=== PATIENT | male | born 1955 | race Caucasian/White ===

== ENCOUNTER 2022-03-09 21:41 | Inpatient (IN) ==
[2022-03-09] MEDS ORDERED: Enoxaparin 40 MG/0.4 ML SYR SUBCUT SCH (23:45)
[2022-03-10 00:30] LABS: INR 2.5 (0.86-1.15)
[2022-03-10] MEDS ORDERED: Remdesivir 100 mg Vial 200 MG in NS 0.9% 250 ml 210 ML IV ONE (00:30)
[2022-03-10] MEDS ORDERED: Iohexol 350 (CONTRAST) 500 ML MDV IV ONE (00:57)
[2022-03-10 04:47] LABS: Hematocrit 37 % (42-52); Hemoglobin 12.1 g/dL (14.0-18.0); Mean Corpuscular HGB Conc 33 g/dL (31-36); Mean Corpuscular Hemoglobin 31 pg (27-31); Mean Corpuscular Volume 93 fL (80-94); Platelet Count 146 10^3/uL (150-450); Red Blood Count 3.95 10^6 /uL (4.18-5.48); Red Cell Distribution Width 14 % (10-15); White Blood Count 23.6 10^3/uL (3.5-10.8)
[2022-03-10 05:04] LABS: INR 2.42 (0.86-1.15)
[2022-03-10 05:11] LABS: Albumin 3.6 g/dL (3.2-5.2); Albumin/Globulin Ratio 1.2 (1-3); Calcium 8.4 mg/dL (8.6-10.3); Globulin 2.9 g/dL (2-4); Potassium 4.8 mmol/L (3.5-5.0); Total Bilirubin 0.9 mg/dL (0.2-1.0); Total Protein 6.5 g/dL (6.4-8.9); eGFR CKD-EPI 74.2 (>60)
[2022-03-10 07:49] LABS: Magnesium 1.5 mg/dL (1.9-2.7)
[2022-03-10] MEDS: Mometasone/Formoter 200/5 MDI INH SCH ×2 (07:52→20:27)
[2022-03-10] MEDS: Albuterol HFA INHALER 8 gm MDI INH PRN ×2 (07:52→20:32)
[2022-03-10] MEDS: SPIRIVA Respimat (tiotropium) 2.5 mcg/inh Inhaler INH SCH (07:53)
[2022-03-10] MEDS ORDERED: Magnesium Sulfate IV 3 GM in NS 0.9% 100 ml BAG 100 ML IVPB ONE (08:03)
[2022-03-10] MEDS ORDERED: Magnesium Sulfate 2 GM IV (Premix) IVPB ONE (08:15)
[2022-03-10 08:56] LABS: ABS Basophils 0.1 10^3/ul (0-0.2); ABS Lymphocytes 1.2 10^3/ul (1.0-4.8); ABS Monocytes 0.3 10^3/ul (0-0.8); Lymphocyte % 4.9 %; Nucleated Red Blood Cells % 0.1
[2022-03-10] MEDS ORDERED: Albuterol/Ipratropium RESP(NF) MDI (Combivent Respimat) INH SCH (09:00)
[2022-03-10] MEDS ORDERED: Magnesium Sulfate 1 GM IV 1 GM/100 ML BAG IV ONE (09:15)
[2022-03-10 09:50] LABS: RBC Morphology Normal (Normal)
[2022-03-10] MEDS ORDERED: Metoprolol Tartrate 5 mg VIAL 5 ml VIAL (1 mg/ml) IV ONE (14:46)
[2022-03-10] MEDS: cefTRIAXone 1 gm/50 mL D5W 1 GM/50 ML BAG IV SCH (20:20)
[2022-03-10] MEDS: Remdesivir 100 mg Vial 100 MG in NS 0.9% 250 ml 230 ML IV SCH (22:19)
[2022-03-11 05:44] LABS: ABS Lymphocytes 1.2 10^3/ul (1.0-4.8); ABS Monocytes 0.7 10^3/ul (0-0.8); ABS Neutrophils 16.4 10^3/ul (1.5-7.7); Hematocrit 36 % (42-52); Hemoglobin 11.8 g/dL (14.0-18.0); Lymphocyte % 6.6 %; Mean Corpuscular HGB Conc 33 g/dL (31-36); Mean Corpuscular Hemoglobin 31 pg (27-31); Mean Corpuscular Volume 94 fL (80-94); Mean Platelet Volume 8.5 fL (7.4-10.4); Platelet Count 152 10^3/uL (150-450); Red Blood Count 3.81 10^6 /uL (4.18-5.48); Red Cell Distribution Width 14 % (10-15); White Blood Count 18.4 10^3/uL (3.5-10.8)
[2022-03-11 05:53] LABS: INR 1.76 (0.86-1.15)
[2022-03-11 06:13] LABS: Albumin 3.4 g/dL (3.2-5.2); Albumin/Globulin Ratio 1.1 (1-3); Calcium 8.8 mg/dL (8.6-10.3); Magnesium 2.4 mg/dL (1.9-2.7); Total Bilirubin 0.4 mg/dL (0.2-1.0); Total Protein 6.4 g/dL (6.4-8.9); eGFR CKD-EPI 99.6 (>60)
[2022-03-11 06:56] LABS: Potassium 5.3 mmol/L (3.5-5.0)
[2022-03-11] MEDS: Mometasone/Formoter 200/5 MDI INH SCH ×2 (07:50→19:06)
[2022-03-11] MEDS: SPIRIVA Respimat (tiotropium) 2.5 mcg/inh Inhaler INH SCH (07:50)
[2022-03-11] MEDS: Albuterol HFA INHALER 8 gm MDI INH PRN (07:50)
[2022-03-11] MEDS: methylPREDNISolone SOD SUCC 40 mg/ml 1 ml VIAL IV SCH (08:29)
[2022-03-11] MEDS: cefTRIAXone 1 gm/50 mL D5W 1 GM/50 ML BAG IV SCH (21:02)
[2022-03-11] MEDS: Remdesivir 100 mg Vial 100 MG in NS 0.9% 250 ml 230 ML IV SCH (21:02)
[2022-03-12 06:52] LABS: INR 1.6 (0.86-1.15)
[2022-03-12 06:55] LABS: ABS Lymphocytes 1.4 10^3/ul (1.0-4.8); ABS Monocytes 0.6 10^3/ul (0-0.8); ABS Neutrophils 14.1 10^3/ul (1.5-7.7); Hematocrit 36 % (42-52); Hemoglobin 11.8 g/dL (14.0-18.0); Lymphocyte % 8.7 %; Mean Corpuscular HGB Conc 33 g/dL (31-36); Mean Corpuscular Hemoglobin 31 pg (27-31); Mean Corpuscular Volume 94 fL (80-94); Mean Platelet Volume 8.5 fL (7.4-10.4); Platelet Count 157 10^3/uL (150-450); Red Blood Count 3.77 10^6 /uL (4.18-5.48); Red Cell Distribution Width 14 % (10-15); White Blood Count 16.2 10^3/uL (3.5-10.8)
[2022-03-12 07:09] LABS: ALT 40 U/L (7-52); Albumin 3.3 g/dL (3.2-5.2); Albumin/Globulin Ratio 1.1 (1-3); Alkaline Phosphatase 81 U/L (35-149); Blood Urea Nitrogen 26 mg/dL (6-24); CO2 Carbon Dioxide 37 mmol/L (22-32); Calcium 8.8 mg/dL (8.6-10.3); Chloride 101 mmol/L (101-111); Globulin 3.1 g/dL (2-4); Glucose 139 mg/dL (70-100); Magnesium 2.2 mg/dL (1.9-2.7); Sodium 140 mmol/L (135-145); Total Protein 6.4 g/dL (6.4-8.9); eGFR CKD-EPI 99.2 (>60)
[2022-03-12 07:18] LABS: Anion Gap 2 mmol/L (2-11)
[2022-03-12] MEDS: SPIRIVA Respimat (tiotropium) 2.5 mcg/inh Inhaler INH SCH (08:06)
[2022-03-12] MEDS: Mometasone/Formoter 200/5 MDI INH SCH ×2 (08:06→20:50)
[2022-03-12] MEDS: Albuterol HFA INHALER 8 gm MDI INH PRN ×2 (08:07→20:53)
[2022-03-12] MEDS: methylPREDNISolone SOD SUCC 40 mg/ml 1 ml VIAL IV SCH (09:03)
[2022-03-12 09:18] LABS: Potassium Redraw 5.1 mmol/L (3.5-5.0)
[2022-03-12] MEDS: cefTRIAXone 1 gm/50 mL D5W 1 GM/50 ML BAG IV SCH (21:41)
[2022-03-12] MEDS: Remdesivir 100 mg Vial 100 MG in NS 0.9% 250 ml 230 ML IV SCH (22:16)
[2022-03-13 07:07] LABS: ABS Lymphocytes 1.7 10^3/ul (1.0-4.8); ABS Monocytes 0.5 10^3/ul (0-0.8); ABS Neutrophils 8.7 10^3/ul (1.5-7.7); Eosinophil % 0.1 %; Hematocrit 37 % (42-52); Hemoglobin 12.3 g/dL (14.0-18.0); Lymphocyte % 15.3 %; Mean Corpuscular HGB Conc 34 g/dL (31-36); Mean Corpuscular Hemoglobin 32 pg (27-31); Mean Corpuscular Volume 95 fL (80-94); Mean Platelet Volume 8.3 fL (7.4-10.4); Platelet Count 160 10^3/uL (150-450); Red Blood Count 3.87 10^6 /uL (4.18-5.48); Red Cell Distribution Width 13 % (10-15); White Blood Count 10.9 10^3/uL (3.5-10.8)
[2022-03-13 07:09] LABS: INR 1.67 (0.86-1.15)
[2022-03-13 07:19] LABS: Albumin 3.2 g/dL (3.2-5.2); Calcium 9.1 mg/dL (8.6-10.3); Globulin 3.1 g/dL (2-4); Potassium 4.9 mmol/L (3.5-5.0); Total Bilirubin 0.4 mg/dL (0.2-1.0); Total Protein 6.3 g/dL (6.4-8.9); eGFR CKD-EPI 98.1 (>60)
[2022-03-13] MEDS: SPIRIVA Respimat (tiotropium) 2.5 mcg/inh Inhaler INH SCH (07:26)
[2022-03-13] MEDS: Mometasone/Formoter 200/5 MDI INH SCH (07:27)
[2022-03-13 11:54] VITALS: BP 112/69
== END 2022-03-13 15:30 | disposition home or self-care (01) | DRG 137 ==
LOC: ICU 23:14 → SUATTDRO 23:44 → MEDTELE 03-12 00:36
PROVIDERS: ADMIT Hospitalist; ATTEND Internal Medicine